=== PATIENT | female | born 1980 | race Caucasian/White ===

== ENCOUNTER → 2025-06-23 | Day surgery (SDC) | payer BC ==
[~2025-06-23] MED LIST: ACETAMINOPHEN 1000 MG/100 ML 100 ML IV ONE; BUPIVACAINE 0.5%/EPI 30 ML SDV INJ ONE; FENTANYL CITRATE/PF 100MCG/2 ML INJ ONE; KETOROLAC TROMETHAMINE 30 MG/ML VIAL ONE; LACTATED RINGER'S 1,000 ML ONE; LIDOCAINE HCL 2% LOCAL INJ 5 ML SDV VIAL INJ ONE; LINZESS290 MCG PO; MIDAZOLAM HCL 2 MG/2 ML VIAL ONE; ONDANSETRON HCL INJ 2MG/ML 2ML 2 MG/ML VIAL ONE; PROPOFOL IV EMULSION 10 MG/ML 20 ML VIAL ONE; SERTRALINE HCL100 MG PO; SEVOFLURANE INHAL SOLN 250 ML PEN BTL ONE
[2025-06-23] MEDS: CEFAZOLIN SODIUM 2 GM ONE (12:29)
[2025-06-23 15:40] VITALS: BP 141/72; PULSE 55; RESP 18; O2SAT 100
== END | disposition home or self-care (01) ==
LOC: OR 10:07
PROVIDERS: ATTEND Podiatrist Foot & Ankle Surgery
DX: M20.12 Hallux valgus (acquired), left foot (principal); F41.9 Anxiety disorder, unspecified; F32.A Depression, unspecified; Z79.899 Other long term (current) drug therapy
CPT/HCPCS: 28296; 81025; C1713 ×4; C1762; J0131; J1885; J2003; J2250; J2405; J2704; J3010; J7121